=== PATIENT | male | born 1980 ===

== ENCOUNTER 2016-08-16 02:54 | Emergency (ER) | payer MEDICAID ==
[2016-08-16 02:54] VITALS: BMI 21.5
[2016-08-16 03:08] VITALS: TEMP 98.6
[2016-08-16] MEDS ORDERED: Lactated Ringer's 1,000 ML IV SCH (03:30)
--- NOTE | 2016-08-16 03:42 | ED PDOC ---
HPI: Abdomen Time Seen by Provider: 08/16/16 03:15 Chief Complaint (Nursing): Abdominal Pain Chief Complaint (Provider): Abdominal Pain History Per: Patient History/Exam Limitations: no limitations Onset/Duration Of Symptoms: Hrs (x4) Current Symptoms Are (Timing): Still Present Severity: Mild Additional Complaint(s): Patient is a 36 year old male, who has a history of pancreatitis, presents to the ED complaining of acute abdominal pain x4 hours ago. Pain is described as consistent and sharp. Pain similar to previous episodes of pancreatitis. Patient also reports 2 episodes of non-bloody, non-bilious vomiting. Patient has had multiple visits for similar complaints in the past. Patients most recent endoscopy was in May and done by Dr. Campbell. PMD: Royce Pappas ED Scribe Attestation - Scribe Statement Scribe Attestation: Documented by Scribename acting as a scribe for Bernardo Crum MD. Provider Scribe Attestation: All medical record entries made by the Scribe were at my direction and personally dictated by me. I have reviewed the chart and agree that the record accurately reflects my personal performance of the history, physical exam, medical decision making, and the department course for this patient. I have also personally directed, reviewed, and agree with the discharge instructions and disposition. Past Medical History Vital Signs: Last Vital Signs Temp 98.6 F 08/16/16 03:05 Pulse 85 08/16/16 03:05 Resp 17 08/16/16 03:05 BP 145/67 08/16/16 03:05 Pulse Ox 98 08/16/16 06:30 - Medical History PMH: Asthma, Hepatitis, HTN, Pancreatitis Denies: Bronchitis, Chronic Kidney Disease - Surgical History Surgical History: Appendectomy, Cholecystectomy Denies: Pacemaker - Family History Family History: States: No Known Family Hx - Social History Current smoker - smoking cessation education provided: Yes (1 pack a day) - Immunization History Hx Tetanus Toxoid Vaccination: No Hx Influenza Vaccination: No Hx Pneumococcal Vaccination: No - Home Medications Home Medications: Ambulatory Orders Medication Instructions Recorded Albuterol HFA [Ventolin HFA 90 2 puff IH Q4H PRN 12/29/15 mcg/actuation (8 g)] Docusate [Colace] 100 mg PO TID PRN 12/29/15 Fentanyl [Duragesic Patch] 50 mcg TD Q72 01/03/16 Lipase/Protease/Amylase [Jomar Renteria 1 cap PO ACTID 01/18/16 12,000 Units Capsule] oxyCODONE [oxyCODONE Immediate 30 mg PO Q6H PRN 05/18/16 Release Tab] Clindamycin [Cleocin] 300 mg PO TID #30 cap 06/03/16 - Allergies Allergies/Adverse Reactions: Allergies Allergy/AdvReac Type Severity Reaction Status Date / Time Penicillins Allergy Severe ANAPHYLAXIS Verified 04/08/16 14:25 hydromorphone HCl AdvReac Severe DIZZINESS; Verified 04/08/16 14:25 [From Dilaudid] GI UPSET Review of Systems ROS Statement: Except As Marked, All Systems Reviewed And Found Negative Constitutional: Negative for: Fever Gastrointestinal: Positive for: Vomiting (x2), Abdominal Pain Physical Exam - Reviewed Nursing Documentation Reviewed: Yes Vital Signs Reviewed: Yes - Physical Exam Appears: Positive for: Non-toxic, No Acute Distress, Uncomfortable Head Exam: Positive for: ATRAUMATIC, NORMAL INSPECTION, NORMOCEPHALIC Skin: Positive for: Normal Color, Warm, DRY Eye Exam: Positive for: Normal appearance, EOMI Neck: Positive for: Normal, Painless ROM Cardiovascular/Chest: Positive for: Regular Rate, Rhythm. Negative for: Gallop , Murmur Respiratory: Positive for: Normal Breath Sounds. Negative for: Accessory Muscle Use, Rhonchi, Respiratory Distress Gastrointestinal/Abdominal: Positive for: Soft, Tenderness (epigastric). Negative for: Mass, Distended, Guarding, Rebound Extremity: Positive for: Normal ROM Neurologic/Psych: Positive for: Alert, Oriented - Laboratory Results Result Diagrams: 08/16/16 04:09 08/16/16 04:09 - ECG O2 Sat by Pulse Oximetry: 98 Medical Decision Making Medical Decision Making: Time: 3:30 Impression: 36 y/o male w/ abdominal pain in setting of pancreatitis Plan: Alcohol Serum CMP Drug Screen Lipase UDip CBC Lactated Ringers 1,000 ml IV Morphine [address] A/P 7:00 Patient signed out to Dr. Gallo. Pending CT A/P and re-evaluation Scribe Attestation: Documented by Ely Ortiz acting as a scribe for Bernardo Crum MD. Scribe Attestation: All medical record entries made by the Scribe were at my direction and personally dictated by me. I have reviewed the chart and agree that the record accurately reflects my personal performance of the history, physical exam, medical decision making, and the department course for this patient. I have also personally directed, reviewed, and agree with the discharge instructions and disposition. ED OBSERVATION Date of observation admission: 08/16/16 Time of observation admission: 05:04 - Observation admission statement Patient is being placed in observation because:: monitor pain until ct results - Goals of Observation Goals of observation are:: control pain until the results of the ct exam Disposition - Clinical Impression Clinical Impression: Abdominal pain, Chronic pancreatitis - Patient ED Disposition Is Patient to be Admitted: Transfer of Care - Disposition Referrals: Royce Pappas MD [Primary Care Provider] - Disposition: Transfer of Care Disposition Time: 05:04 Condition: FAIR Patient Signed Over To: Alisa Gallo
[2016-08-16 04:14] LABS: BASO # 0.1 K/uL (0.0-0.2); BASO % 0.4 % (0.0-2.0); EOS # 0.1 K/uL (0.0-0.7); EOS % 0.4 % (0.0-4.0); LYMPH # 2.5 K/uL (1.0-4.3); LYMPH % 16.5 % (20.0-40.0); MEAN CELL VOLUME 80.6 fl (80.0-94.0); MEAN CORPUSCULAR HEMOGLOBIN 27.1 pg (27.0-31.0); MEAN CORPUSCULAR HGB CONC 33.7 g/dL (33.0-37.0); MEAN PLATELET VOLUME 7.6 fl (7.2-11.7); MONO % 6.4 % (0.0-10.0); NEUT # 11.4 K/uL (1.8-7.0); NEUT % 76.3 % (50.0-75.0); NRBC % 0.1 % (0.0-0.0); RED CELL DISTRIBUTION WIDTH 15.2 % (11.5-14.5)
[2016-08-16 04:17] LABS: CHLORIDE 101 mmol/L (98-107); SODIUM 138 mmol/l (132-148)
[2016-08-16 04:18] LABS: POTASSIUM 3.9 MMOL/L (3.6-5.0)
[2016-08-16 04:20] LABS: ALB/GLOB RATIO 1.1 (1.0-2.1); ALKALINE PHOSPHATASE 89 U/L (38-126); ALT/SGPT 54 U/L (21-72); AST/SGOT 36 U/L (17-59); BILIRUBIN,TOTAL 0.4 mg/dl (0.2-1.3); BLOOD UREA NITROGEN 15 mg/dl (9-20); CARBON DIOXIDE 23 mmol/L (22-30); GFR AFRICAN-AMERICAN > 60; GLUCOSE,RANDOM 106 mg/dL (75-110); TOTAL PROTEIN 7.4 G/DL (6.3-8.2)
[2016-08-16 04:21] LABS: ALCOHOL SERUM < 10 mg/dl (0-10); CALCIUM 9.3 mg/dL (8.4-10.2); LIPASE 20 U/L (23-300)
[2016-08-16] MEDS ORDERED: Sodium Chloride 0.9% 50 ML IV ONE (05:36)
[2016-08-16] MEDS ORDERED: Iohexol 300 100 ML IJ ONE (05:36)
--- NOTE | 2016-08-16 07:01 | CT ---
EXAM: CT Abdomen and Pelvis With Intravenous Contrast CLINICAL HISTORY: 36 years old, male; Pain; Abdominal pain; Epigastric; Prior surgery; Surgery date: 6+ months; Surgery type: Pancreas surgery 2009 TECHNIQUE: Axial computed tomography images of the abdomen and pelvis with intravenous contrast. This CT exam was performed using one or more of the following dose reduction techniques: automated exposure control, adjustment of the mA and/or kV according to patient size, and/or use of iterative reconstruction technique. CONTRAST: 95 mL of [id number] administered intravenously. EXAM DATE/TIME: 08/16/2016 5:51 AM COMPARISON: No relevant prior studies available. FINDINGS: Lower thorax: No acute findings. ABDOMEN: Liver: Unremarkable. No mass. Gallbladder and bile ducts: Cholecystectomy. Common bile duct measures 8.3 mm. Pancreas: Multiple coarse calcifications throughout the pancreas. Pancreatic duct measures 3 mm in head and body. Spleen: Unremarkable. No splenomegaly. Adrenals: Unremarkable. No mass. Kidneys and ureters: Unremarkable. No solid mass. No hydronephrosis. Stomach and bowel: Air in nondilated small and large bowel. Moderate amount of fecal material in ascending colon. No dilatation of small or large bowel. No mucosal thickening. Appendix: Not identified. No findings to suggest acute appendicitis. PELVIS: Bladder: Unremarkable. No mass. Reproductive: Unremarkable as visualized. ABDOMEN and PELVIS: Intraperitoneal space: Unremarkable. No free air. No significant fluid collection. Bones/joints: No acute fracture. Soft tissues: Unremarkable. Vasculature: Unremarkable. No abdominal aortic aneurysm. Lymph nodes: No enlarged lymph nodes. IMPRESSION: 1. Chronic pancreatitis. No findings of acute pancreatitis. 2. Dilated common bile duct likely secondary to cholecystectomy. 3. Remaining findings as above.
[2016-08-16 07:03] LABS: RBC URINE 3 /hpf (0-3); URINE BILIRUBIN NEGATIVE (NEGATIVE); URINE BLOOD NEGATIVE (NEGATIVE); URINE COLOR YELLOW (YELLOW); URINE GLUCOSE (UA) NEG (Normal); URINE KETONE NEGATIVE (NEGATIVE); URINE LEUKOCYTE ESTERASE NEG Leu/uL (Negative); URINE PROTEIN NEGATIVE (NEGATIVE); URINE UROBILINOGEN 0.2-1.0 mg/dL (0.2-1.0); WBC URINE < 1 /hpf (0-5)
--- NOTE | 2016-08-16 07:07 | ED PDOC ---
- Laboratory Results Result Diagrams: 08/16/16 04:09 08/16/16 04:09 - ECG O2 Sat by Pulse Oximetry: 98 - Progress Re-evaluation Time: 08:00 Condition: Re-examined, Improved Medical Decision Making Medical Decision Making: Time: 07 Patient signed out by Dr. Crum pending CT and re-evaluation Time: 744 CT Scan ABD PELVIS IV CONTRAST ONLY Exam Date: 08/16/16 This imaging exam was performed at [facility] EXAM: CT Abdomen and Pelvis With Intravenous Contrast CLINICAL HISTORY: 36 years old, male; Pain; Abdominal pain; Epigastric; Prior surgery; Surgery date: 6+ months; Surgery type: Pancreas surgery 2009 TECHNIQUE: Axial computed tomography images of the abdomen and pelvis with intravenous contrast. This CT exam was performed using one or more of the following dose reduction techniques: automated exposure control, adjustment of the mA and/or kV according to patient size, and/or use of iterative reconstruction technique. CONTRAST: 95 mL of [id number] administered intravenously. EXAM DATE/TIME: 08/16/2016 5:51 AM COMPARISON: No relevant prior studies available. FINDINGS: Lower thorax: No acute findings. ABDOMEN: Liver: Unremarkable. No mass. Gallbladder and bile ducts: Cholecystectomy. Common bile duct measures 8.3 mm. Pancreas: Multiple coarse calcifications throughout the pancreas. Pancreatic duct measures 3 mm in head and body. Spleen: Unremarkable. No splenomegaly. Adrenals: Unremarkable. No mass. Kidneys and ureters: Unremarkable. No solid mass. No hydronephrosis. Stomach and bowel: Air in nondilated small and large bowel. Moderate amount of fecal material in ascending colon. No dilatation of small or large bowel. No mucosal thickening. Appendix: Not identified. No findings to suggest acute appendicitis. PELVIS: Bladder: Unremarkable. No mass. Reproductive: Unremarkable as visualized. ABDOMEN and PELVIS: Intraperitoneal space: Unremarkable. No free air. No significant fluid collection. Bones/joints: No acute fracture. Soft tissues: Unremarkable. Vasculature: Unremarkable. No abdominal aortic aneurysm. Lymph nodes: No enlarged lymph nodes. IMPRESSION: 1. Chronic pancreatitis. No findings of acute pancreatitis. 2. Dilated common bile duct likely secondary to cholecystectomy. 3. Remaining findings as above. Scribe Attestation: Documented by Katheryn Boss acting as a scribe for Cleo Cuellar MD MD Scribe Attestation: All medical record entries made by the Scribe were at my direction and personally dictated by me. I have reviewed the chart and agree that the record accurately reflects my personal performance of the history, physical exam, medical decision making, and the department course for this patient. I have also personally directed, reviewed, and agree with the discharge instructions and disposition. Disposition Doctor Will See Patient In The: Office Counseled Patient/Family Regarding: Studies Performed, Diagnosis, Need For Followup - Clinical Impression Clinical Impression: Abdominal pain, Chronic pancreatitis - POA Present On Arrival: None - Disposition Referrals: Aquilino Campbell MD [Medical Doctor] - Royce Pappas MD [Primary Care Provider] - Disposition: Routine/Home Disposition Time: 08:00 Condition: GOOD Additional Instructions: Follow up with your PCP and Dr Campbell in 2-3 days Instructions: Cocaine Abuse (ED), Abdominal Pain (ED)
[2016-08-16 08:00] VITALS: BP 130/90; PULSE 88; RESP 19
[2016-08-16 08:17] VITALS: O2SAT 98
== END 2016-08-16 11:42 | disposition home or self-care (01) ==
LOC: H.ER 02:54
DX: K86.1 Other chronic pancreatitis (principal); R11.10 Vomiting, unspecified; I10 Essential (primary) hypertension

== ENCOUNTER 2016-08-31 23:32 | Emergency (ER) | payer MEDICAID ==
[2016-08-31 23:33] VITALS: BMI 21.5
[2016-08-31 23:39] VITALS: BP 114/76; PULSE 101; RESP 18; TEMP 97.6; O2SAT 100
[2016-09-01 00:47] LABS: BASO # 0.1 K/uL (0.0-0.2); BASO % 0.8 % (0.0-2.0); EOS % 0.2 % (0.0-4.0); HEMATOCRIT 42.6 % (35.0-51.0); LYMPH # 2.3 K/uL (1.0-4.3); LYMPH % 14.7 % (20.0-40.0); MEAN CELL VOLUME 81.1 fl (80.0-94.0); MEAN CORPUSCULAR HEMOGLOBIN 26.5 pg (27.0-31.0); MEAN CORPUSCULAR HGB CONC 32.7 g/dL (33.0-37.0); MEAN PLATELET VOLUME 7.8 fl (7.2-11.7); MONO % 6.1 % (0.0-10.0); NEUT # 12.4 K/uL (1.8-7.0); NEUT % 78.2 % (50.0-75.0); NRBC % 0.1 % (0.0-0.0); RED CELL DISTRIBUTION WIDTH 15.1 % (11.5-14.5); WHITE BLOOD COUNT 15.8 K/uL (4.8-10.8)
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
[2016-09-01 00:57] LABS: ALB/GLOB RATIO 0.9 (1.0-2.1); ALKALINE PHOSPHATASE 96 U/L (38-126); ALT/SGPT 45 U/L (21-72); AST/SGOT 39 U/L (17-59); BILIRUBIN,TOTAL 0.6 mg/dl (0.2-1.3); BLOOD UREA NITROGEN 16 mg/dl (9-20); CALCIUM 9.7 mg/dL (8.4-10.2); CARBON DIOXIDE 23 mmol/L (22-30); CHLORIDE 101 mmol/L (98-107); GFR AFRICAN-AMERICAN > 60; GLUCOSE,RANDOM 116 mg/dL (75-110); LIPASE 36 U/L (23-300); SODIUM 139 mmol/l (132-148); TOTAL PROTEIN 7.9 G/DL (6.3-8.2)
[2016-09-01 00:59] LABS: POTASSIUM 4.8 MMOL/L (3.6-5.0)
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
== END 2016-09-01 01:36 | disposition left against medical advice (07) ==
LOC: H.ER 23:32
DX: K86.1 Other chronic pancreatitis (principal); S63.502A Unspecified sprain of left wrist, initial encounter; Y09 Assault by unspecified means

== ENCOUNTER 2017-04-02 04:18 | Emergency (ER) | payer MEDICAID ==
[2017-04-02 04:19] VITALS: BMI 21.5
[2017-04-02 04:29] VITALS: RESP 16; TEMP 98.1; O2SAT 96
[2017-04-02] MEDS ORDERED: Sodium Chloride 0.9% 1,000 ML IV STA (04:43)
--- NOTE | 2017-04-02 04:46 | ED PDOC ---
HPI: General Adult Time Seen by Provider: 04/02/17 04:44 Chief Complaint (Nursing): Medical Clearance Chief Complaint (Provider): MEDICAL CLEARANCE History Per: Patient (37 Y/O MALE HERE FOR MEDICAL CLEARANCE FOR INCARCERATION. PATIENT ADMITS TO HEROIN USE. POLICE STATE PATIENT HAS BEEN IN LONG-TERM X 6 HOURS. PATIENT NOTED SLEEPY IN ED. ADMITS HEROIN USE.) Past Medical History Reviewed: Historical Data, Nursing Documentation, Vital Signs Vital Signs: Last Vital Signs Temp 98.1 F 04/02/17 04:23 Pulse 57 L 04/02/17 04:23 Resp 16 04/02/17 04:23 BP 131/83 04/02/17 04:23 Pulse Ox 96 04/02/17 04:46 - Medical History PMH: Asthma, Gall Bladder Disease, Hepatitis, HTN, Pancreatitis Denies: Bronchitis, Chronic Kidney Disease - Surgical History Surgical History: Appendectomy, Cholecystectomy Denies: Pacemaker - Family History Family History: States: Unknown Family Hx - Immunization History Hx Tetanus Toxoid Vaccination: No Hx Influenza Vaccination: No Hx Pneumococcal Vaccination: No - Home Medications Home Medications: Ambulatory Orders Medication Instructions Recorded Albuterol HFA [Ventolin HFA 90 2 puff IH Q4H PRN 12/29/15 mcg/actuation (8 g)] Docusate [Colace] 100 mg PO TID PRN 12/29/15 Fentanyl [Duragesic Patch] 50 mcg TD Q72 01/03/16 Lipase/Protease/Amylase [Creon Dr 1 cap PO ACTID 01/18/16 12,000 Units Capsule] oxyCODONE [oxyCODONE Immediate 30 mg PO Q6H PRN 05/18/16 Release Tab] Clindamycin [Cleocin] 300 mg PO TID #30 cap 06/03/16 Famotidine/Ca Carb/Mag Hydrox 1 each PO BID #28 tab.chew 08/25/16 [Pepcid Complete Tablet Chew] - Allergies Allergies/Adverse Reactions: Allergies Allergy/AdvReac Type Severity Reaction Status Date / Time Penicillins Allergy Severe ANAPHYLAXIS Verified 08/25/16 20:36 hydromorphone HCl AdvReac Severe DIZZINESS; Verified 08/25/16 20:36 [From Dilaudid] GI UPSET Review of Systems ROS Statement: Except As Marked, All Systems Reviewed And Found Negative Physical Exam - Reviewed Nursing Documentation Reviewed: Yes Vital Signs Reviewed: Yes - Physical Exam Appears: Positive for: Well, Non-toxic, No Acute Distress Head Exam: Positive for: ATRAUMATIC, NORMAL INSPECTION, NORMOCEPHALIC Skin: Positive for: Normal Color, Warm, DRY Eye Exam: Positive for: EOMI, Normal appearance, PERRL ENT: Positive for: Normal ENT Inspection Neck: Positive for: Normal, Painless ROM Cardiovascular/Chest: Positive for: Regular Rate, Rhythm Respiratory: Positive for: CNT, Normal Breath Sounds Gastrointestinal/Abdominal: Positive for: Normal Exam, Bowel Sounds, Soft Back: Positive for: Normal Inspection Extremity: Positive for: Normal ROM Neurologic/Psych: Positive for: Alert, Oriented - ECG O2 Sat by Pulse Oximetry: 96 - Progress ED Course And Treament: PATIENT BECAME ALERT AND UPSET WITH IV PLACEMENT. IV D/C PATIENT IS ALERT/COHERENT. Disposition - Clinical Impression Clinical Impression: Heroin use - Patient ED Disposition Is Patient to be Admitted: No - Disposition Disposition: Routine/Home Disposition Time: 05:34 Condition: FAIR Additional Instructions: PATIENT IS MEDICALLY AND PSYCHIATRICALLY CLEARED FOR INCARCERATION. Instructions: Narcotic Abuse (ED) Forms: [employer] [facility] (Romansh)
--- NOTE | 2017-04-02 06:23 | ED PDOC ---
- ECG O2 Sat by Pulse Oximetry: 96 Medical Decision Making Medical Decision Making: Time: 06:00 Patient signed out to me by CHELSEY Haley pending crisis evaluation Time: 04:43 Plan: --crisis evaluation --cloNIDine 0.1 mg PO --IV Fluids --Zofran 4 mg IVP --Zofran 4 mg PO -- -- Reassess: -Crisis cleared patient to go back to police custody. Dr. Rosales recommended an outpatient detox. Scribe Attestation: Documented by Bobby Miller, acting as a scribe for Keaton Gerard MD. Provider Scribe Attestation: All medical record entries made by the Scribe were at my direction and personally dictated by me. I have reviewed the chart and agree that the record accurately reflects my personal performance of the history, physical exam, medical decision making, and the department course for this patient. I have also personally directed, reviewed, and agree with the discharge instructions and disposition. Disposition Counseled Patient/Family Regarding: Studies Performed, Diagnosis, Need For Followup - Clinical Impression Clinical Impression: Heroin use - POA Present On Arrival: None - Disposition Disposition: Routine/Home Disposition Time: 07:00 Condition: FAIR Additional Instructions: PATIENT IS MEDICALLY AND PSYCHIATRICALLY CLEARED FOR INCARCERATION. recommend outpt detox retrn to the ED with any worsening or concerning symptoms Instructions: Narcotic Abuse (ED) Forms: [facility] (Thai)
[2017-04-02 06:44] VITALS: BP 142/91; PULSE 62
== END 2017-04-02 07:15 | disposition home or self-care (01) ==
LOC: H.ER 04:18
DX: Z02.89 Encounter for other administrative examinations (principal); F11.20 Opioid dependence, uncomplicated; I10 Essential (primary) hypertension; J45.909 Unspecified asthma, uncomplicated; K85.90 Acute pancreatitis without necrosis or infection, unspecified; Z88.0 Allergy status to penicillin

== ENCOUNTER 2017-04-02 11:08 | Emergency (ER) | payer MEDICAID ==
[2017-04-02 11:08] VITALS: BMI 21.5
--- NOTE | 2017-04-02 12:13 | ED PDOC ---
HPI: Psych/Substance Abuse Time Seen by Provider: 04/02/17 11:43 Chief Complaint (Nursing): Psychiatric Evaluation Chief Complaint (Provider): psych eval Additional Complaint(s): 37yo M in ED for eval of pysch and medical clearance for incarceration. was found in retirement cell with his sweater around his neck tied to bars infront of him in attempt to kill himself. Pt states that he is suicidal pt is a heroin addict last drug use was yesterday. denies homicidal thought Past Medical History Reviewed: Historical Data, Nursing Documentation, Vital Signs - Medical History PMH: Asthma, Gall Bladder Disease, Pancreatitis Denies: Bronchitis, Diabetes, Hepatitis, HIV, HTN, Chronic Kidney Disease, Seizures, Sexually Transmitted Disease - Surgical History Surgical History: Appendectomy, Cholecystectomy Denies: Pacemaker - Family History Family History: States: Unknown Family Hx - Immunization History Hx Tetanus Toxoid Vaccination: No Hx Influenza Vaccination: No Hx Pneumococcal Vaccination: No - Home Medications Home Medications: Ambulatory Orders Medication Instructions Recorded Albuterol HFA [Ventolin HFA 90 2 puff IH Q4H PRN 12/29/15 mcg/actuation (8 g)] Docusate [Colace] 100 mg PO TID PRN 12/29/15 Fentanyl [Duragesic Patch] 50 mcg TD Q72 01/03/16 Lipase/Protease/Amylase [Creon Dr 1 cap PO ACTID 01/18/16 12,000 Units Capsule] oxyCODONE [oxyCODONE Immediate 30 mg PO Q6H PRN 05/18/16 Release Tab] Clindamycin [Cleocin] 300 mg PO TID #30 cap 06/03/16 Famotidine/Ca Carb/Mag Hydrox 1 each PO BID #28 tab.chew 08/25/16 [Pepcid Complete Tablet Chew] - Allergies Allergies/Adverse Reactions: Allergies Allergy/AdvReac Type Severity Reaction Status Date / Time Penicillins Allergy Severe ANAPHYLAXIS Verified 04/02/17 12:06 hydromorphone HCl AdvReac Severe DIZZINESS; Verified 04/02/17 12:06 [From Dilaudid] GI UPSET Review of Systems ROS Statement: Except As Marked, All Systems Reviewed And Found Negative Constitutional: Negative for: Fever, Chills Psych: Positive for: Suicidal ideation Physical Exam - Reviewed Nursing Documentation Reviewed: Yes Vital Signs Reviewed: Yes - Physical Exam Appears: Positive for: Well (sleepingcomfortably .no tremors noted), Non-toxic, No Acute Distress Head Exam: Positive for: ATRAUMATIC, NORMAL INSPECTION, NORMOCEPHALIC Skin: Positive for: Normal Color, Warm, DRY Eye Exam: Positive for: EOMI, Normal appearance, PERRL ENT: Positive for: Normal ENT Inspection Cardiovascular/Chest: Positive for: Regular Rate, Rhythm Respiratory: Positive for: CNT, Normal Breath Sounds Gastrointestinal/Abdominal: Positive for: Normal Exam, Bowel Sounds, Soft Back: Positive for: Normal Inspection Extremity: Positive for: Normal ROM Neurologic/Psych: Positive for: Alert, Oriented - Laboratory Results Result Diagrams: 04/02/17 12:51 04/02/17 12:51 - Progress ED Course And Treament: crisis evaluated pt and pt will require [place] [facility] [place] Decision Making Medical Decision Making: pt is medically cleared [place] [facility] [place]. Pt was [place] [facility] [place].c by MD Nicolas PT is medically and psychiatrically cleared for incarceration Disposition - Clinical Impression Clinical Impression: Drug abuse - Patient ED Disposition Is Patient to be Admitted: No Counseled Patient/Family Regarding: Studies Performed, Diagnosis, Need For Followup - Disposition Disposition: Routine/Home Disposition Time: 20:07 Condition: STABLE Additional Instructions: Filemon feliz is medically and pyschtrically cleared for incarceration Instructions: Polysubstance Abuse (ED) Forms: [facility] (Chinese)
[2017-04-02 13:17] LABS: BASO # 0.1 K/uL (0.0-0.2); BASO % 0.7 % (0.0-2.0); EOS # 0.1 K/uL (0.0-0.7); EOS % 0.6 % (0.0-4.0); HEMATOCRIT 44.6 % (35.0-51.0); LYMPH # 2.5 K/uL (1.0-4.3); LYMPH % 20.3 % (20.0-40.0); MEAN CELL VOLUME 83.1 fl (80.0-94.0); MEAN CORPUSCULAR HEMOGLOBIN 27.1 pg (27.0-31.0); MEAN CORPUSCULAR HGB CONC 32.6 g/dL (33.0-37.0); MEAN PLATELET VOLUME 7.9 fl (7.2-11.7); MONO # 0.7 K/uL (0.0-0.8); MONO % 5.9 % (0.0-10.0); NEUT # 8.8 K/uL (1.8-7.0); NEUT % 72.5 % (50.0-75.0); NRBC % 0.1 % (0.0-0.0); RED CELL DISTRIBUTION WIDTH 14.5 % (11.5-14.5); WHITE BLOOD COUNT 12.1 K/uL (4.8-10.8)
[2017-04-02 13:25] LABS: ALB/GLOB RATIO 1.1 (1.0-2.1); ALCOHOL SERUM < 10 mg/dl (0-10); ALKALINE PHOSPHATASE 102 U/L (38-126); ALT/SGPT 57 U/L (21-72); AST/SGOT 33 U/L (17-59); BILIRUBIN,TOTAL 0.3 mg/dl (0.2-1.3); BLOOD UREA NITROGEN 14 mg/dl (9-20); CALCIUM 9.5 mg/dL (8.4-10.2); CARBON DIOXIDE 25 mmol/L (22-30); CHLORIDE 106 mmol/L (98-107); GFR AFRICAN-AMERICAN > 60; GLUCOSE,RANDOM 118 mg/dL (75-110); POTASSIUM 4.3 MMOL/L (3.6-5.0); SODIUM 141 mmol/l (132-148); TOTAL PROTEIN 8.1 G/DL (6.3-8.2)
[2017-04-02 15:20] LABS: RBC URINE 4 /hpf (0-3); URINE BILIRUBIN NEGATIVE (NEGATIVE); URINE BLOOD NEGATIVE (NEGATIVE); URINE COLOR YELLOW (YELLOW); URINE GLUCOSE (UA) NEG (Normal); URINE KETONE TRACE mg/dL (NEGATIVE); URINE LEUKOCYTE ESTERASE NEG Leu/uL (Negative); URINE PROTEIN NEGATIVE (NEGATIVE); URINE UROBILINOGEN 0.2-1.0 mg/dL (0.2-1.0); WBC URINE 1 /hpf (0-5)
--- NOTE | 2017-04-02 18:49 | RAD ---
HISTORY: medical COMPARISON: Chest x-ray performed 11/11/15 TECHNIQUE: Chest, one view. FINDINGS: LUNGS: Bilateral hilar prominence. No focal consolidation. Please note that chest x-ray has limited sensitivity for the detection of pulmonary masses. PLEURA: No significant pleural effusion identified. No definite pneumothorax . CARDIOVASCULAR: The cardiomediastinal silhouette appears within normal limits of size. OSSEOUS STRUCTURES: No acute osseous abnormality identified. VISUALIZED UPPER ABDOMEN: Unremarkable. OTHER FINDINGS: None. IMPRESSION: Bilateral hilar prominence.
[2017-04-02 19:34] VITALS: BP 144/81; PULSE 68; RESP 18; TEMP 99.2; O2SAT 98
--- NOTE | 2017-04-03 07:45 | CARD ---
APPROVED REPORT EKG Measurement Heart [id number] [id number] <Conclusion> Normal sinus rhythm Normal ECG
== END 2017-04-02 20:26 | disposition home or self-care (01) ==
LOC: H.ER 11:08
DX: Z02.89 Encounter for other administrative examinations (principal); F19.10 Other psychoactive substance abuse, uncomplicated; J45.909 Unspecified asthma, uncomplicated; K85.90 Acute pancreatitis without necrosis or infection, unspecified; Z88.0 Allergy status to penicillin
CPT/HCPCS: 71010; 80053; 80320; 80324; 80345; 80346; 80349; 80353; 80358; 80361; 81003; 83992; 85025; 93005; 96372; 99282; J2060

== ENCOUNTER 2017-04-03 00:49 | Emergency (ER) | payer MEDICAID ==
[2017-04-03 00:50] VITALS: BMI 21.5
[2017-04-03 01:08] VITALS: TEMP 98.2; O2SAT 98
[2017-04-03 01:42] VITALS: BP 129/78; PULSE 74; RESP 18
--- NOTE | 2017-04-03 02:00 | ED PDOC ---
HPI: General Adult Time Seen by Provider: 04/03/17 01:55 Chief Complaint (Nursing): Foreign Body Chief Complaint (Provider): R/O FOREIGN BODY History Per: Patient (37 Y/O MALE HERE FOR EVALUATION OF POSSIBLE SWALLOWED FOREIGN BODY. PATIENT IS UNDER ARREST AND WAS CLEARED MEDICALLY AND PSYCHIATRICALLY YESTERDAY FOR INCARCERATION. NOTED TO SWALLOW BUTTONS IN SNF TODAY WITH SUBSEQUENT BLOOD TINGED EMESIS. ) Past Medical History Reviewed: Historical Data, Nursing Documentation, Vital Signs Vital Signs: Last Vital Signs Temp 98.2 F 04/03/17 01:00 Pulse 74 04/03/17 01:00 Resp 18 04/03/17 01:00 BP 129/78 04/03/17 01:00 Pulse Ox 98 04/03/17 02:01 - Medical History PMH: Asthma, Gall Bladder Disease, Pancreatitis Denies: Bronchitis, Diabetes, Hepatitis, HIV, HTN, Chronic Kidney Disease, Seizures, Sexually Transmitted Disease - Surgical History Surgical History: Appendectomy, Cholecystectomy Denies: Pacemaker - Family History Family History: States: Unknown Family Hx - Immunization History Hx Tetanus Toxoid Vaccination: No Hx Influenza Vaccination: No Hx Pneumococcal Vaccination: No - Home Medications Home Medications: Ambulatory Orders Medication Instructions Recorded Albuterol HFA [Ventolin HFA 90 2 puff IH Q4H PRN 12/29/15 mcg/actuation (8 g)] Docusate [Colace] 100 mg PO TID PRN 12/29/15 Fentanyl [Duragesic Patch] 50 mcg TD Q72 01/03/16 Lipase/Protease/Amylase [Creon Dr 1 cap PO ACTID 01/18/16 12,000 Units Capsule] oxyCODONE [oxyCODONE Immediate 30 mg PO Q6H PRN 05/18/16 Release Tab] Clindamycin [Cleocin] 300 mg PO TID #30 cap 06/03/16 Famotidine/Ca Carb/Mag Hydrox 1 each PO BID #28 tab.chew 08/25/16 [Pepcid Complete Tablet Chew] - Allergies Allergies/Adverse Reactions: Allergies Allergy/AdvReac Type Severity Reaction Status Date / Time Penicillins Allergy Severe ANAPHYLAXIS Verified 04/02/17 12:06 hydromorphone HCl AdvReac Severe DIZZINESS; Verified 04/02/17 12:06 [From Dilaudid] GI UPSET Review of Systems ROS Statement: Except As Marked, All Systems Reviewed And Found Negative Physical Exam - Reviewed Nursing Documentation Reviewed: Yes Vital Signs Reviewed: Yes - Physical Exam Appears: Positive for: Well, Non-toxic, No Acute Distress Head Exam: Positive for: ATRAUMATIC, NORMAL INSPECTION, NORMOCEPHALIC Skin: Positive for: Normal Color, Warm, DRY Eye Exam: Positive for: EOMI, Normal appearance, PERRL ENT: Positive for: Normal ENT Inspection Neck: Positive for: Normal, Painless ROM Cardiovascular/Chest: Positive for: Regular Rate, Rhythm Respiratory: Positive for: CNT, Normal Breath Sounds Gastrointestinal/Abdominal: Positive for: Normal Exam, Bowel Sounds, Soft Back: Positive for: Normal Inspection Extremity: Positive for: Normal ROM Neurologic/Psych: Positive for: Alert, Oriented - ECG O2 Sat by Pulse Oximetry: 98 - Progress ED Course And Treament: kub: 2 buttons noted by stomache region. Patient states he has suicidal ideation. d/w crisis. Patient was seen earlier today and cleared psychiatrically for admission. Will d/w Dr. Valenzuela. Diagnosis heroin withdrawal Disposition - Clinical Impression Clinical Impression: Foreign body in stomach - Patient ED Disposition Is Patient to be Admitted: No - Disposition Referrals: Oskar RODRIGUEZ,MD Natalio [Medical Doctor] - Disposition: Routine/Home Disposition Time: 03:59 Condition: FAIR Additional Instructions: PATIENT IS MEDICALLY AND PSYCHIATRICALLY CLEARED FOR INCARCERATION Instructions: Foreign Body Ingestion (ED), Narcotic Abuse (ED) Forms: [employer] (Setswana)
--- NOTE | 2017-04-03 09:05 | RAD ---
HISTORY: FOREIGN BODY COMPARISON: CT abdomen and pelvis 08/16/2016 FINDINGS: BOWEL: Two rounded radiopacity is consistent with history of recent ingestion of 2 buttons are noted projecting over the gastric antrum Right colonic stool retention. No bowel obstruction. BONES: Normal. OTHER FINDINGS: Cholecystectomy clips and faint amorphous calcifications pancreatic head region consistent with pancreatic calcifications of chronic pancreatitis IMPRESSION: Two radiopaque foreign bodies consistent with recent ingestion of tube buttons -project over gastric antrum. Cholecystectomy Calcifications of chronic pancreatitis Right stool retention. No bowel obstruction
--- NOTE | 2017-04-03 09:25 | RAD ---
PROCEDURE: CHEST RADIOGRAPH, 1 VIEW HISTORY: R/O FOREIGN BODY COMPARISON: None available. FINDINGS: LUNGS: Clear. PLEURA: No pneumothorax or pleural fluid seen. CARDIOVASCULAR: Normal. OSSEOUS STRUCTURES: No significant abnormalities. VISUALIZED UPPER ABDOMEN: Normal. OTHER FINDINGS: None. IMPRESSION: No active disease. No radiopaque foreign bodies in the chest
== END 2017-04-03 04:10 ==
LOC: H.ER 00:49
DX: T18.2XXA Foreign body in stomach, initial encounter (principal); J45.909 Unspecified asthma, uncomplicated; Z88.0 Allergy status to penicillin; Z02.89 Encounter for other administrative examinations
CPT/HCPCS: 71010; 74000; 96372; 99282; J2060

== ENCOUNTER 2018-02-22 10:55 | Emergency (ER) | payer MEDICAID ==
[2018-02-22 11:02] VITALS: BP 120/64; PULSE 73; RESP 16; TEMP 97.8; O2SAT 100
[2018-02-22 11:03] VITALS: BMI 25.1
[2018-02-22] MEDS ORDERED: Lidocaine 5% Patch TD STA (11:29)
[2018-02-22] MEDS ORDERED: Lidocaine 5% Patch TD ONE (11:39)
--- NOTE | 2018-02-22 11:47 | ED PDOC ---
HPI: Back History Per: Patient Additional Complaint(s): Pt. states 4-5 days ago he woke up with L sided lower back pain which progressively worsened and now encompasses the entire lower back 4-5 days ago. Reports pain is worsened with movement and is slightly alleviated when sitting up. Reports that in 2013 he sustained 3 herniated discs in the lower back but never received treatment for it. Has been applying heat and taking Advil without relief. Denies leg pain, numbness, tingling, saddle paresthesias, trauma, dys uria, hematuria, incontinence. <Bradley Norton - Last Filed: 02/22/18 13:16> <Brooklynn Garcia - Last Filed: 02/22/18 13:22> Time Seen by Provider: 02/22/18 11:13 Chief Complaint (Nursing): Back Pain Past Medical History Reviewed: Historical Data, Nursing Documentation, Vital Signs Vital Signs: Last Vital Signs Temp 97.8 F 02/22/18 11:02 Pulse 73 02/22/18 11:02 Resp 16 02/22/18 11:02 BP 120/64 02/22/18 11:02 Pulse Ox 100 02/22/18 11:02 - Medical History PMH: Asthma, Back Problems, Gall Bladder Disease, Pancreatitis Denies: Bronchitis, Diabetes, Hepatitis, HIV, HTN, Chronic Kidney Disease, Seizures, Sexually Transmitted Disease - Surgical History Surgical History: Appendectomy, Cholecystectomy Denies: Pacemaker - Family History Family History: States: No Known Family Hx - Immunization History Hx Tetanus Toxoid Vaccination: No Hx Influenza Vaccination: No Hx Pneumococcal Vaccination: No <Bradley Norton - Last Filed: 02/22/18 13:16> Vital Signs: Last Vital Signs Temp 97.8 F 02/22/18 11:02 Pulse 73 02/22/18 11:02 Resp 16 02/22/18 11:02 BP 120/64 02/22/18 11:02 Pulse Ox 100 02/22/18 13:19 <Brooklynn Garcia - Last Filed: 02/22/18 13:22> - Home Medications Home Medications: Ambulatory Orders Medication Instructions Recorded RX: Albuterol HFA [Ventolin HFA 90 2 puff IH Q4H PRN 12/29/15 mcg/actuation (8 g)] RX: Docusate [Colace] 100 mg PO TID PRN 12/29/15 RX: Fentanyl [Duragesic Patch] 50 mcg TD Q72 01/03/16 RX: Lipase/Protease/Amylase [Creon 1 cap PO ACTID 01/18/16 12,000 Units Capsule] RX: oxyCODONE [oxyCODONE Immediate 30 mg PO Q6H PRN 05/18/16 Release Tab] RX: Clindamycin [Cleocin] 300 mg PO TID #30 cap 06/03/16 Famotidine/Ca Carb/Mag Hydrox 1 each PO BID #28 tab.chew 08/25/16 [Pepcid Complete Tablet Chew] Lidocaine 5% [Lidoderm] 1 ea TD DAILY PRN #10 patch 02/22/18 Meloxicam [Mobic] 1 - 2 tab PO DAILY PRN #10 tab 02/22/18 Methocarbamol [Robaxin] 500 mg PO TID PRN #15 tab 02/22/18 - Allergies Allergies/Adverse Reactions: Allergies Allergy/AdvReac Type Severity Reaction Status Date / Time Penicillins Allergy Severe ANAPHYLAXIS Verified 04/02/17 12:06 hydromorphone HCl AdvReac Severe DIZZINESS; Verified 04/02/17 12:06 [From Dilaudid] GI UPSET Review of Systems ROS Statement: Except As Marked, All Systems Reviewed And Found Negative Musculoskeletal: Positive for: Back Pain <Bradley Norton E - Last Filed: 02/22/18 13:16> Physical Exam - Physical Exam Appears: Positive for: Well, Non-toxic, In Acute Distress (mild painful distress) Skin: Positive for: Normal Color, Warm. Negative for: Rash Respiratory: Positive for: Normal Breath Sounds. Negative for: Respiratory Distress Gastrointestinal/Abdominal: Positive for: Normal Exam, Soft. Negative for: Tenderness Back: Positive for: Normal Inspection, Muscle Spasm (L sided paralumbar tenderness with minimal spasm). Negative for: L CVA Tenderness, R CVA Tenderness, Vertebral Tenderness Neurologic/Psych: Positive for: Alert, Oriented (x3) <Bradley Norton E - Last Filed: 02/22/18 13:16> - ECG O2 Sat by Pulse Oximetry: 100 - Radiology X-Ray: Interpreted by Me (LS spine x-ray) X-Ray Interpretation: No Acute Disease - Progress ED Course And Treament: Toradol 30mg IM, valium 10mg PO, lidoderm patch, UA, LS spine x-rays ordered. Pt. searched on [place] [employer] and indicates that ptChelly flores received a Percocet 5/325 30 day supply. Re-evaluation Time: 13:16 Condition: Re-examined, Improved <Bradley Norton - Last Filed: 02/22/18 13:16> Disposition - Patient ED Disposition Is Patient to be Admitted: No - Disposition Disposition: Routine/Home Disposition Time: 13:17 <Bradley Norton - Last Filed: 02/22/18 13:16> <Brooklynn Garcia - Last Filed: 02/22/18 13:22> - Clinical Impression Clinical Impression: Low back pain - Disposition Referrals: [facility] [Outside] Condition: IMPROVED Additional Instructions: FOLLOW UP WITH YOUR PMD FOR FURTHER EVALUATION. RETURN TO ED IMMEDIATELY IF SYMPTOMS WORSEN. AMY BARRON, thank you for letting us take care of you today. Your provider was Brooklynn Garcia MD and you were treated for BACK PAIN. The emergency medical care you received today was directed at your acute symptoms. If you were prescribed any medication, please fill it and take as directed. It may take several days for your symptoms to resolve. Return to the Emergency Department if your symptoms worsen, do not improve, or if you have any other problems. Please contact your doctor or call one of the physicians/clinics you have been referred to that are listed on the Patient Visit Information form that is included in your discharge packet. Bring any paperwork you were given at discharge with you along with any medications you are taking to your follow up visit. Our treatment cannot replace ongoing medical care by a primary care provider outside of the emergency department. [facility] your care today. If you had an X-Ray or CT scan: A Radiologist will review the ED reading if any change in treatment is needed we will contact you. If you had a blood, urine, or wound culture: It will take several days for the results, if any change in treatment is needed we will contact you. If you had an STI test: It will take 48 hours for the results. Please call after 1 week if you have not heard back. Prescriptions: Lidocaine 5% [Lidoderm] 1 ea TD DAILY PRN #10 patch PRN Reason: Pain Meloxicam [Mobic] 1 - 2 tab PO DAILY PRN #10 tab PRN Reason: Pain Methocarbamol [Robaxin] 500 mg PO TID PRN #15 tab PRN Reason: Muscle Spasm Instructions: Low Back Pain (DC) Forms: [facility] (Lao), [facility] ED School/Work Excuse Addendum Addendum: 02/22/18 13:22 Reviewed chart. Agree with PA assessment and plan. <Brooklynn Garcia - Last Filed: 02/22/18 13:22>
[2018-02-22 12:32] LABS: URINE BACTERIA RARE (<OCC); URINE BILIRUBIN NEGATIVE (NEGATIVE); URINE BLOOD NEGATIVE (NEGATIVE); URINE CLARITY SLIGHTY-CLOUDY (Clear); URINE COLOR YELLOW (YELLOW); URINE GLUCOSE (UA) NEG (Normal); URINE LEUKOCYTE ESTERASE NEG Leu/uL (Negative); URINE PROTEIN NEGATIVE (NEGATIVE); URINE UROBILINOGEN 0.2-1.0 mg/dL (0.2-1.0)
--- NOTE | 2018-02-22 22:01 | RAD ---
Date of service: 02/22/2018 PROCEDURE: Radiographs of the Lumbar Spine. HISTORY: pain COMPARISON: No prior. FINDINGS: BONES: Normal alignment. No listhesis. No fracture. DISC SPACES: Mild degenerative changes noted. OTHER FINDINGS: None. IMPRESSION: No evidence of acute fracture or dislocation. Mild degenerative changes.
== END 2018-02-22 13:25 | disposition home or self-care (01) ==
LOC: H.ER 10:55
DX: M54.5 Low back pain (principal); J45.909 Unspecified asthma, uncomplicated; Z88.0 Allergy status to penicillin
CPT/HCPCS: 72100; 81003; 96372; 99282; J1885

== ENCOUNTER 2018-06-28 02:51 | Emergency (ER) | payer MEDICAID ==
[2018-06-28 02:55] VITALS: BMI 22.9
[2018-06-28 02:56] VITALS: BP 138/86; TEMP 98.3
[2018-06-28 03:46] VITALS: PULSE 98; RESP 18; O2SAT 98
--- NOTE | 2018-06-28 03:58 | ED PDOC ---
HPI: Psych/Substance Abuse Time Seen by Provider: 06/28/18 03:07 Chief Complaint (Nursing): Substance Abuse Chief Complaint (Provider): Substance Abuse History Per: Patient, EMS History/Exam Limitations: no limitations Onset/Duration Of Symptoms: Hrs (x3) Current Symptoms Are (Timing): Still Present Suicide/Self Injury Attempted (Context): None Additional Complaint(s): 38 y/o male with a PMHx of pancreatitis and drug abuse brought to the ED via EMS for drug intoxication, onset prior to arrival. As per Triage note, EMS were called to the patient's home after patient's mother found him unconscious. Patient admits to sniffing a bag of Heroin at 1 AM "in order to get high". Patient received narcan in the field and was awake and alert upon triage. Otherwise, patient denies head injury, any other injury, suicidal ideation, homicidal ideation and any other drug or alcohol use. PMD: no provider Past Medical History Reviewed: Historical Data, Nursing Documentation, Vital Signs Vital Signs: Last Vital Signs Temp 98.3 F 06/28/18 02:55 Pulse 98 H 06/28/18 03:46 Resp 18 06/28/18 03:46 BP 138/86 06/28/18 02:55 Pulse Ox 98 06/28/18 03:46 - Medical History PMH: Asthma, Back Problems, Gall Bladder Disease, Pancreatitis Denies: Bronchitis, Diabetes, Hepatitis, HIV, HTN, Chronic Kidney Disease, Seizures, Sexually Transmitted Disease - Surgical History Surgical History: Appendectomy, Cholecystectomy Denies: Pacemaker - Family History Family History: States: Unknown Family Hx - Social History Drugs: Other (heroine) - Immunization History Hx Tetanus Toxoid Vaccination: No Hx Influenza Vaccination: No Hx Pneumococcal Vaccination: No - Home Medications Home Medications: Ambulatory Orders Medication Instructions Recorded Albuterol HFA [Ventolin HFA 90 2 puff IH Q4H PRN 12/29/15 mcg/actuation (8 g)] Docusate [Colace] 100 mg PO TID PRN 12/29/15 Fentanyl [Duragesic Patch] 50 mcg TD Q72 01/03/16 Lipase/Protease/Amylase [Creon Dr 1 cap PO ACTID 01/18/16 12,000 Units Capsule] oxyCODONE [oxyCODONE Immediate 30 mg PO Q6H PRN 05/18/16 Release Tab] Clindamycin [Cleocin] 300 mg PO TID #30 cap 06/03/16 Famotidine/Ca Carb/Mag Hydrox 1 each PO BID #28 tab.chew 08/25/16 [Pepcid Complete Tablet Chew] Lidocaine 5% [Lidoderm] 1 ea TD DAILY PRN #10 patch 02/22/18 Meloxicam [Mobic] 1 - 2 tab PO DAILY PRN #10 tab 02/22/18 Methocarbamol [Robaxin] 500 mg PO TID PRN #15 tab 02/22/18 Clindamycin [Cleocin] 300 mg PO QID #40 cap 05/20/18 Naloxone HCl [Narcan] 4 mg NS PRN PRN #2 spray 06/28/18 - Allergies Allergies/Adverse Reactions: Allergies Allergy/AdvReac Type Severity Reaction Status Date / Time Penicillins Allergy Severe ANAPHYLAXIS Verified 06/28/18 03:01 hydromorphone HCl AdvReac Severe DIZZINESS; Verified 06/28/18 03:01 [From Dilaudid] GI UPSET Review of Systems ROS Statement: Except As Marked, All Systems Reviewed And Found Negative Psych: Positive for: Other (drug abuse) Physical Exam - Reviewed Nursing Documentation Reviewed: Yes Vital Signs Reviewed: Yes - Physical Exam Appears: Positive for: No Acute Distress Head Exam: Positive for: ATRAUMATIC, NORMOCEPHALIC Skin: Positive for: Normal Color, Warm, Dry Eye Exam: Positive for: Normal appearance, EOMI. Negative for: PERRL (Pupils 1- 2mm ) Neck: Positive for: Normal, Painless ROM Cardiovascular/Chest: Positive for: Regular Rate, Rhythm. Negative for: Murmur Respiratory: Positive for: Normal Breath Sounds. Negative for: Respiratory Distress Gastrointestinal/Abdominal: Positive for: Normal Exam, Soft. Negative for: Tenderness Extremity: Positive for: Normal ROM. Negative for: Deformity Neurologic/Psych: Positive for: Alert, Oriented, Gait (steady, unassisted gait). Negative for: Motor/Sensory Deficits - ECG O2 Sat by Pulse Oximetry: 98 (RA) Pulse Ox Interpretation: Normal Medical Decision Making Medical Decision Making: Time: 256 A/P: Heroin abuse s/p reversal with Narcan Time: 352 -- Patient observed in the ED for one hour without any signs of drowsiness or decreased respiratory drive. -- Will prescribe narcan intranasal and discharge home. Scribe Attestation: Documented by Marcella Smith, acting as a scribe for Juanpablo Hoffman MD. Provider Scribe Attestation: All medical record entries made by the Scribe were at my direction and personally dictated by me. I have reviewed the chart and agree that the record accurately reflects my personal performance of the history, physical exam, medical decision making, and the department course for this patient. I have also personally directed, reviewed, and agree with the discharge instructions and disposition. Disposition - Clinical Impression Clinical Impression: Heroin abuse Counseled Patient/Family Regarding: Studies Performed, Diagnosis, Need For Followup, Rx Given - Disposition Referrals: [facility] [Outside] Disposition: Routine/Home Disposition Time: 03:53 Condition: IMPROVED Prescriptions: Naloxone HCl [Narcan] 4 mg NS PRN PRN #2 spray PRN Reason: Overdose Instructions: Opioid Use Disorder Forms: [facility] (Frisian)
== END 2018-06-28 03:55 | disposition home or self-care (01) ==
LOC: H.ER 02:51
DX: F11.10 Opioid abuse, uncomplicated (principal); J45.909 Unspecified asthma, uncomplicated; K85.90 Acute pancreatitis without necrosis or infection, unspecified; Z88.0 Allergy status to penicillin; Z88.5 Allergy status to narcotic agent